=== PATIENT | male | born 1940 | race Caucasian/White ===

== ENCOUNTER → 2016-10-19 | Outpatient (CLI) | payer MEDICARE ==
--- NOTE | 2016-10-24 09:47 | RSPPFT ---
DATE OF PROCEDURE: 10/19/16 COMMENTS: Spirometry with FVC of 4.5, FEV1 of 3.3, FEV1/FVC ratio at 73%. A non-significant response to acutely inhaled bronchodilator noted. Slow vital capacity at 89% of predicted. TLC is 82% of predicted. Diffusion capacity is mildly reduced but normal when corrected for alveolar volume. IMPRESSION: 1. Mild airways obstruction. 2. No evidence of airways restriction. 3. Non-significant response to acutely inhaled bronchodilator. 4. Mild reduction in diffusion capacity and normal when corrected for alveolar volume.
== END ==
LOC: HRSP 13:06
PROVIDERS: ATTEND Internal Medicine
DX: R06.09 Other forms of dyspnea (principal)
CPT/HCPCS: 94060; 94726; 94729